=== PATIENT | female | born 1960 | race Caucasian/White ===

== ENCOUNTER 2020-05-20 03:53 | Inpatient (IN) | payer MEDICAID, SELFPAY ==
[~2020-05-20] VITALS: Ht 167.6 cm; Wt 99.3 kg
[2020-05-20 04:00] VITALS: BP_SYST 120
[2020-05-20 04:43] LABS: BASOPHILS # (AUTO) 0.1 K/uL (0.0-0.2); BASOPHILS % (AUTO) 0.9 % (0.0-2.0); EOSINOPHILS # (AUTO) 0.3 K/uL (0.0-0.4); EOSINOPHILS % (AUTO) 2.8 % (0.0-4.0); HEMATOCRIT 43.7 % (36-48); HEMOGLOBIN 14.8 g/dL (12.0-16.0); LYMPHOCYTES % (AUTO) 15.5 % (20.5-51.5); MEAN CORPUSCULAR HEMOGLOBIN 30 pg (27-31); MEAN CORPUSCULAR HGB CONC 34 % (32-36); MEAN CORPUSCULAR VOLUME 89 fL (79.0-98.0); MONOCYTES # (AUTO) 0.6 K/uL (0.0-1.0); MONOCYTES % (AUTO) 4.9 % (1.7-9.3); NEUTROPHILS # (AUTO) 9.6 K/uL (1.8-7.7); NEUTROPHILS % (AUTO) 75.9 % (40.0-70.0); PLATELET COUNT (AUTO) 369 K/uL (130-430); RED BLOOD CELL COUNT(AUTO) 4.93 MIL/uL (4.2-6.2); RED CELL DISTRIBUTION WIDTH 14.8 % (9.0-15.0); WHITE BLOOD COUNT (AUTO) 12.6 K/uL (4.8-10.8)
[2020-05-20 04:56] LABS: PROTHROMBIN TIME 9.9 SECS (9.5-12.5)
[2020-05-20 04:57] LABS: CALCIUM 10.1 mg/dL (8.4-11.0); CREATININE 1.21 mg/dL (0.55-1.30); POTASSIUM 3.6 mmol/L (3.5-5.1)
[2020-05-20 05:03] LABS: ALBUMIN 4.2 g/dL (3.4-4.8); TOTAL BILIRUBIN 0.5 mg/dL (0.0-1.0)
[2020-05-20] MEDS ORDERED: KETOROLAC TROMETHAMINE 60 MG/2 ML VIAL IM ONE ×2 (07:32→07:45)
[2020-05-20] MEDS ORDERED: ONDANSETRON 4 MG ODT TAB PO ONE (08:15)
[2020-05-20] MEDS ORDERED: MORPHINE 4 MG/ML INJ. SYRINGE IVP ONE (09:30)
[2020-05-20] MEDS ORDERED: PIPERACILLIN/TAZO 3.375 GM in NS 50 ML IV ONE (09:30)
[2020-05-20 09:40] LABS: BILIRUBIN,URINE 1+ (NEGATIVE); CLARITY/URINE SL CLOUDY (CLEAR); COLOR,URINE YELLOW (YELLOW); GLUCOSE,URINE NEGATIVE (NEGATIVE); KETONES,URINE NEGATIVE (NEGATIVE); LEUKOCYTE ESTERASE ,URINE NEGATIVE (NEGATIVE); NITRITE, URINE NEGATIVE (NEGATIVE); PROTEIN URINE NEGATIVE (NEGATIVE); UROBILINOGEN,URINE 0.2 (0.2-1.0)
[2020-05-20 09:44] LABS: BLOOD, URINE TRACE (NEGATIVE)
[2020-05-20] MEDS ORDERED: D5/0.45 NS 1,000 ML IV SCH (10:00)
[2020-05-20] MEDS ORDERED: PIPERACILLIN/TAZOBACTAM 3.375 GM/VIAL (ZOSYN) IV ONE (10:00)
[2020-05-20 10:19] LABS: BACTERIA,URINE FEW /HPF (None Seen); CALCIUM OXALATE CRYSTALS,UR 0-10 /HPF (None Seen); MUCUS,URINE 1+ /LPF (None Seen); WBC,URINE 0-3 /HPF (0-3)
[2020-05-20 10:57] VITALS: BP_SYST 131
[2020-05-20] MEDS ORDERED: PANTOPRAZOLE SODIUM 40 MG/VIAL (PROTONIX) IVP ONE (12:30)
[2020-05-20 12:40] VITALS: BP_SYST 128
[2020-05-20] MEDS ORDERED: ONDANSETRON HCL 4 MG/2 ML VIAL IVP PRN ×2 (13:30→14:30)
[2020-05-20] MEDS ORDERED: LORazepam 2 MG/ML VIAL IVP PRN (13:30)
[2020-05-20] MEDS ORDERED: fentaNYL CITRATE/PF 100 MCG/2 ML AMP IVP PRN ×2 (14:30)
[2020-05-20] MEDS: PIPERACILLIN/TAZO 3.375/DEX-IS 50 ML IV SCH ×2 (18:04→23:13)
[2020-05-20 20:00] VITALS: BP_SYST 129
[2020-05-20] MEDS ORDERED: PANTOPRAZOLE SODIUM 40 MG/VIAL (PROTONIX) ONE (20:47)
[2020-05-20] MEDS: KCL 20 mEq in D5/0.45NS 1000mL 1,000 ML IV SCH (20:54)
[2020-05-20] MEDS: MORPHINE 4 MG/ML INJ. SYRINGE IVP PRN (20:56)
[2020-05-21 00:19] VITALS: BP_SYST 129
[2020-05-21 00:20] VITALS: BP_SYST 129
[2020-05-21] MEDS: KCL 20 mEq in D5/0.45NS 1000mL 1,000 ML IV SCH ×2 (01:30→08:07)
[2020-05-21] MEDS: MORPHINE 4 MG/ML INJ. SYRINGE IVP PRN ×2 (03:37→08:25)
[2020-05-21] MEDS: PIPERACILLIN/TAZO 3.375/DEX-IS 50 ML IV SCH ×2 (05:55→11:27)
[2020-05-21] MEDS ORDERED: OXYCODONE/ACETAMINOPHEN 5-325 TABLET PO PRN (07:45)
[2020-05-21] MEDS ORDERED: NALOXONE HCL 0.4 MG/ML AMP (NARCAN) IVP PRN (07:45)
[2020-05-21] MEDS ORDERED: ACETAMINOPHEN 325 MG TABLET PO PRN (07:45)
[2020-05-21] MEDS ORDERED: HYDROcodone/ACETAMIN 5-325 MG TAB (NORCO/ VICODIN) PO PRN (07:45)
[2020-05-21 08:12] VITALS: BP_SYST 131
[2020-05-21 08:32] LABS: BASOPHILS % (AUTO) 0.5 % (0.0-2.0); CALCIUM 7.8 mg/dL (8.4-11.0); CREATININE 1.33 mg/dL (0.55-1.30); EOSINOPHILS # (AUTO) 0.2 K/uL (0.0-0.4); EOSINOPHILS % (AUTO) 2.4 % (0.0-4.0); HEMOGLOBIN 12.8 g/dL (12.0-16.0); LYMPHOCYTES # (AUTO) 1.8 K/uL (1.0-5.5); LYMPHOCYTES % (AUTO) 21.8 % (20.5-51.5); MEAN CORPUSCULAR HEMOGLOBIN 30 pg (27-31); MEAN CORPUSCULAR HGB CONC 34 % (32-36); MEAN CORPUSCULAR VOLUME 90 fL (79.0-98.0); MONOCYTES # (AUTO) 0.7 K/uL (0.0-1.0); MONOCYTES % (AUTO) 7.9 % (1.7-9.3); NEUTROPHILS # (AUTO) 5.6 K/uL (1.8-7.7); NEUTROPHILS % (AUTO) 67.4 % (40.0-70.0); PLATELET COUNT (AUTO) 270 K/uL (130-430); RED BLOOD CELL COUNT(AUTO) 4.21 MIL/uL (4.2-6.2); RED CELL DISTRIBUTION WIDTH 14.9 % (9.0-15.0); WHITE BLOOD COUNT (AUTO) 8.3 K/uL (4.8-10.8)
[2020-05-21] MEDS ORDERED: PANTOPRAZOLE SODIUM 40 MG/VIAL (PROTONIX) IVP SCH (09:00)
[2020-05-21 12:51] VITALS: BP_SYST 129
[2020-05-21 15:33] VITALS: BP_SYST 121
[2020-05-21] MEDS ORDERED: HYDR-4272 PO ×2 (15:48→15:49)
[2020-05-21 16:29] VITALS: BP_SYST 121
== END 2020-05-21 18:40 | disposition home or self-care (01) | DRG 227 ==
LOC: SED 03:53 → SMU 09:49
PROVIDERS: ADMIT Preventive Medicine Preventive Medicine/Occupational Environmental Medicine; ATTEND Preventive Medicine Preventive Medicine/Occupational Environmental Medicine
PROC: 0WUF0JZ Supplement Abdominal Wall with Synthetic Substitute, Open Approach (ICD-10-PCS; principal; 2020-05-20 12:30)
DX: K43.6 Other and unspecified ventral hernia with obstruction, without gangrene (principal); D72.829 Elevated white blood cell count, unspecified; R73.9 Hyperglycemia, unspecified; E66.09 Other obesity due to excess calories; J42 Unspecified chronic bronchitis; K57.30 Diverticulosis of large intestine without perforation or abscess without bleeding; M16.0 Bilateral primary osteoarthritis of hip; Z20.822 Contact with and (suspected) exposure to COVID-19; Z87.11 Personal history of peptic ulcer disease; Z87.891 Personal history of nicotine dependence; Z86.19 Personal history of other infectious and parasitic diseases; Z68.35 Body mass index [BMI] 35.0-35.9, adult
CPT/HCPCS: 36415; 71045; 76376; 80048; 80053; 81000-TC; 82150-TC; 82550-TC; 82962; 83690-TC; 83880; 84484; 85025; 85379; 85610-TC; 87040-TC; 87081; 88302; 93005; 96365; 96372; 96375; 99285; C1781; C9113; J1885; J2270; J2543; Q0162